=== PATIENT | female | born 1985 | race Caucasian/White ===

== ENCOUNTER → 2017-06-01 | Outpatient (CLI) | payer BC | END | disposition home or self-care (01) | LOC: GMAJ 14:29 | PROVIDERS: ATTEND Family Medicine | DX: R10.84 Generalized abdominal pain (principal) ==

== ENCOUNTER → 2017-06-03 | Outpatient (CLI) | payer BC, OTHER ==
--- NOTE | 2017-06-04 10:26 | US ---
History: Nausea. Complete upper abdominal ultrasound: The liver is of normal size, shape and echogenicity. No focal liver abnormality. No intrahepatic ductal dilatation. The common duct is normal at 2 to 3 mm. The gallbladder demonstrates no wall thickening or surrounding edema. The sonographic Adams sign is not documented. Single transverse image suggests an echogenic structure inside the lumen of the gallbladder however there is reverberation artifact and second transverse image to confirm gallstone is not obtained. The right kidney is 10.5 and left kidney 10.4 cm. Normal renal size and echogenicity. No solid or cystic mass, echogenic region suggestive of stone or significant hydronephrosis. The spleen is normal and measures 10.1 cm. Visualized pancreas, aorta and IVC are within normal limits. No significant free fluid in the upper abdomen. IMPRESSION: Normal upper abdominal sonography. Electronically signed by: Ciara Williamson MD 06/04/2017 10:25 AM [facility] Workstation: [facility]
== END ==
LOC: US 08:32
PROVIDERS: ATTEND Family Medicine
DX: R11.0 Nausea (principal)

== ENCOUNTER 2018-03-28 20:51 | Emergency (ER) | payer BC ==
[2018-03-28 21:32] VITALS: TEMP 98.2; O2SAT 100
[2018-03-28] MEDS ORDERED: KETOROLAC TROMETHAMINE INJ 30 MG/ML VIAL IV ONE (21:38)
[2018-03-28] MEDS ORDERED: LACTATED RINGERS 1,000 ML IVS ONE (21:38)
[2018-03-28] MEDS ORDERED: PROMETHAZINE HCL INJ 25 MG/ML VIAL IM ONE (21:38)
--- NOTE | 2018-03-28 21:38 | ED.PDOC ---
History of Present Illness - General Chief Complaint: Abdominal Pain Stated Complaint: epigastric pain, nausea, diarrhea Time Seen by Provider: 03/28/18 21:17 Information Source: patient Exam Limitations: no limitations - History of Present Illness Initial Comments: Estela Frankel 32 y/o female stated that she had sharp non radiating upper abdominal pain since intermittently no nausea,vomiting or dysuria , hematuria or blood in stool.Also had 2 episodes of loose watery stools .Went to see her Md and was told that she has stomach bug but today ate beef brisket and symptoms recurred with another watery diarrhea,bloted feeling on upper abdomen but no vomiting. Abdominal Pain Onset Location: other - upper abdomen Pain Radiation: no radiation Quality: burning, cramping, intermittent Timing/Duration: days - 3-4 Improving Factors: nothing Worsening Factors: nothing Associated Symptoms: other - diarrhea Review of Systems - Review of Systems Constitutional: States: no symptoms reported EENTM: States: no symptoms reported Respiratory: States: no symptoms reported Cardiology: States: no symptoms reported Gastrointestinal/Abdominal: States: see HPI Genitourinary: States: no symptoms reported Musculoskeletal: States: no symptoms reported Skin: States: no symptoms reported Neurological: States: no symptoms reported Past Medical History (General) - Patient Medical History Hx Seizures: No Hx Stroke: No Hx Dementia: No Hx Asthma: No Hx of COPD: No Hx Cardiac Disorders: No Hx Congestive Heart Failure: No Hx Pacemaker: No Hx Hypertension: No Hx Thyroid Disease: No Hx Diabetes: No Hx Gastroesophageal Reflux: No Hx Renal Disease: No Hx Cancer: No Hx of HIV: No Hx Hepatitis C: No Hx MRSA: No Surgical History: no surgical history - Vaccination History Hx Tetanus, Diphtheria Vaccination: No Hx Influenza Vaccination: No - Social History Hx Tobacco Use: Yes Hx Alcohol Use: Yes - occasional Hx Substance Use: No Hx Physical Abuse: No Hx Emotional Abuse: No - Female History Patient is a Female of Child Bearing Age (10 -59 yrs old): Yes Hx Last Menstrual Period: 03/28/18 Patient : No Family Medical History - Family History Father Family History: No Known Hx Family;Other: congenital heart issue Mother Family History: Unknown Living Status: Still Living Hx Family;Other: does not wish to comment at this time Physical Exam - Physical Exam General Appearance: Alert, Comfortable, No apparent distress Eyes, Ears, Nose, Throat Exam: normal ENT inspection, pharynx normal Neck: non-tender, full range of motion, supple, normal inspection Respiratory: chest non-tender, lungs clear, normal breath sounds, no respiratory distress Cardiovascular/Chest: normal peripheral pulses, regular rate, rhythm, no murmur Peripheral Pulses: No deficit Gastrointestinal/Abdominal: soft, no organomegaly, tenderness - upper abdomen no peritoneal signs, other - tympanitic Back Exam: no CVA tenderness, no vertebral tenderness Neurologic: alert, oriented x 3 Progress - Progress Progress: 03/28/18 23:02 Vital Signs - 8 hr 03/28/18 21:00 Temperature 98.2 F Pulse Rate [ 72 monitor] Respiratory 16 Rate Blood Pressure 135/84 [Left Arm] O2 Sat by Pulse 100 Oximetry - Results/Orders Results/Orders: 03/28/18 21:38 IV Care:Saline Lock per Protoc QSHIFT Laboratory Results - last 24 hr 03/28/18 03/28/18 03/28/18 21:38 21:38 22:12 WBC 5.1 RBC 4.59 Hgb 13.4 Hct 40.5 MCV 88.1 MCH 29.2 MCHC 33.1 RDW 13.5 Plt Count 195 MPV 8.4 Absolute Neuts (auto) 3.00 Absolute Lymphs (auto) 1.50 Absolute Monos (auto) 0.40 Absolute Eos (auto) 0.10 Absolute Basos (auto) 0.00 Neutrophils % 59.8 Lymphocytes % 29.1 Monocytes % 8.4 Eosinophils % 2.1 Basophils % 0.6 Sodium 137 Potassium 3.9 Chloride 102 Carbon Dioxide 29 Anion Gap 9.9 L BUN 13 Creatinine 0.96 BUN/Creatinine Ratio 13.5 Random Glucose 92 Serum Osmolality 273.6 L Calcium 9.4 Total Bilirubin 0.9 AST 22 ALT 22 Alkaline Phosphatase 49 Serum Total Protein 7.4 Albumin 4.4 Globulin 3.0 Albumin/Globulin Ratio 1.5 Lipase 19 L Serum HCG, Qual Urine Color Yellow Urine Appearance Clear Urine pH 7.0 Ur Specific [place] 1.015 Urine Protein Negative Urine Glucose (UA) Negative Urine Ketones Negative Urine Blood Trace-intact H Urine Nitrite Negative Urine Bilirubin Negative Urine Urobilinogen 0.2 Ur Leukocyte Esterase Negative Urine RBC 1-3 Urine WBC 1-3 Ur Epithelial Cells 3-5 Urine Bacteria 1+ 03/28/18 22:32 WBC RBC Hgb Hct MCV MCH MCHC RDW Plt Count MPV Absolute Neuts (auto) Absolute Lymphs (auto) Absolute Monos (auto) Absolute Eos (auto) Absolute Basos (auto) Neutrophils % Lymphocytes % Monocytes % Eosinophils % Basophils % Sodium Potassium Chloride Carbon Dioxide Anion Gap BUN Creatinine BUN/Creatinine Ratio Random Glucose Serum Osmolality Calcium Total Bilirubin AST ALT Alkaline Phosphatase Serum Total Protein Albumin Globulin Albumin/Globulin Ratio Lipase Serum HCG, Qual Negative Urine Color Urine Appearance Urine pH Ur Specific [place] Urine Protein Urine Glucose (UA) Urine Ketones Urine Blood Urine Nitrite Urine Bilirubin Urine Urobilinogen Ur Leukocyte Esterase Urine RBC Urine WBC Ur Epithelial Cells Urine Bacteria - EKG/XRAY/CT CT Ordered: Yes - abd/p-no acute abnormalitie Departure - Departure Clinical Impression: Abdominal pain Qualifiers: Abdominal location: upper abdomen, unspecified Qualified Code(s): R10.10 - Upper abdominal pain, unspecified Time of Disposition: 23:03 Disposition: Discharge to Home or Self Care Departure Forms: ED Discharge - Pt. Copy, Patient Portal Self Enrollment Instructions: DI for Abdominal Pain-Adult, [place] Diet Diet: bland diet, other - Avoid greasy spicy foods until better Referrals: Kevin Dietrich MD [Primary Care Provider] - 1-2 Weeks Home Medications: Ambulatory Orders Norethindrone (Contraceptive) [Clementina] 0.35 mg PO DAILY #3 pack 02/07/14 Additional Instructions: Return to ER as needed;Follow up with primary Md 30 March 2018 as needed
--- NOTE | 2018-03-28 23:00 | CT ---
EXAM DESCRIPTION: CT ABDOMEN AND PELVIS WITHOUT CONTRAST CLINICAL HISTORY: Upper abdominal pain COMPARISON: 06/03/2017 TECHNIQUE: CT of the abdomen and pelvis without IV contrast. Evaluation of the solid organs and vasculature is suboptimal due to lack of IV contrast. DLP: 4 and 62.05 mGy-cm FINDINGS: Lung Bases: The visualized lung bases are clear. Bones: No destructive bone lesions identified. Abdomen: Liver: The liver has normal size and density. Gallbladder: No calcified gallstones. Spleen, Pancreas, and Adrenal Glands: The spleen, pancreas, and adrenal glands are unremarkable. Kidneys: The kidneys have normal size and contour without evidence of hydronephrosis. No obstructing ureteral calculi. Vasculature: The aorta and IVC have normal caliber and position. Stomach: The stomach and duodenum have normal course. Other: No free intraperitoneal air. No free fluid or lymphadenopathy. Pelvis: Bladder: Urinary bladder is unremarkable. Bowel: No dilated loops of large or small bowel. Appendix: Normal appendix. Pelvis: Prostate is not enlarged. IMPRESSION: 1. No acute inflammatory or obstructive process identified. This exam was performed according to our departmental dose-optimization program, which includes automated exposure control, adjustment of the mA and/or kV according to patient size and/or use of iterative reconstruction technique. Electronically signed by: Aniceto Driver 03/28/2018 10:59 PM CDT
[2018-03-28] MEDS ORDERED: PROMETHAZINE W/COD (ER DISP) 20 ML BTTL PO ONE (23:04)
[2018-03-29 00:18] VITALS: BP 128/77
== END 2018-03-29 | disposition home or self-care (01) ==
LOC: ER 20:51
DX: R10.10 Upper abdominal pain, unspecified (principal); R19.7 Diarrhea, unspecified
CPT/HCPCS: 36415; 74176; 80053; 81001; 83690; 84703; 85025; J1885; J7120

== ENCOUNTER → 2019-05-11 | Outpatient (CLI) | payer BC | END | disposition home or self-care (01) | LOC: GMAJ 15:21 | PROVIDERS: ATTEND Family Medicine | DX: R53.83 Other fatigue (principal); R06.02 Shortness of breath ==

== ENCOUNTER → 2019-05-31 | Outpatient (CLI) | payer BC | LOC: LAB.O 09:58 | PROVIDERS: ATTEND Nurse Practitioner Family | DX: E06.3 Autoimmune thyroiditis (principal); E21.2 Other hyperparathyroidism ==